=== PATIENT | male | born 1940 | race American Indian/Alaskan Native ===

== ENCOUNTER 2019-02-15 11:51 | Inpatient (IN) | payer MEDICARE ==
[2019-02-15] MEDS ORDERED: NACL 0.9% 1000 ML 1,000 ML IV ONE (12:07)
--- NOTE | 2019-02-15 12:19 | Emergency Department Report ---
ED GI Bleed HPI - General Chief complaint: GI Bleed Stated complaint: RECTUAL BLEEDING Time Seen by Provider: 02/15/19 12:03 Source: family Mode of arrival: Ambulatory Limitations: No Limitations - History of Present Illness Initial comments: 78-year-old male with a past medical history of prostate cancer treated with radiation she is currently in remission as of August, hypertension, and elevated cholesterol presents to the hospital presents to the Hospital complaining of rectal bleeding since this a.m. Patient states he has had 3-4 episodes of grossly bloody stools. Complains of mild intermittent cramping abdominal pain prior to bowel movement. He denies chest pain, shortness of breath, nausea, vomiting, or fever. He states aspirin 81 mg daily but did not have a dose today. She states that he has had intermittent rectal bleeding with hard stools in the past. This was evaluated via outpatient colonoscopy in December performed by Dr.C Faustin. Patient is unsure of results. He denies any history of bleeding similar to today, history of intestinal cancer, known hemorrhoids, or diverticulosis. - Related Data Home Medications Medication Instructions Recorded Confirmed Last Taken Lisinopril [Zestril TAB] 10 mg PO QDAY 02/15/19 02/15/19 02/15/19 Tamsulosin [Flomax] 0.4 mg PO QDAY 02/15/19 02/15/19 Unknown Allergies Allergy/AdvReac Type Severity Reaction Status Date / Time No Known Allergies Allergy Unverified 02/15/19 11:58 ED Review of Systems ROS: Stated complaint: RECTUAL BLEEDING Other details as noted in HPI Comment: All other systems reviewed and negative ED Past Medical Hx - Past Medical History Previous Medical History?: Yes Hx Hypertension: Yes Hx of Cancer: Yes Additional medical history: Prostate cancer - Surgical History Past Surgical History?: Yes Additional Surgical History: Prostate surgery - Social History Smoking Status: Former Smoker Substance Use Type: None - Medications Home Medications: Home Medications Medication Instructions Recorded Confirmed Last Taken Type Lisinopril [Zestril TAB] 10 mg PO QDAY 02/15/19 02/15/19 02/15/19 History Tamsulosin [Flomax] 0.4 mg PO QDAY 02/15/19 02/15/19 Unknown History ED Physical Exam - General Limitations: No Limitations - Other Other exam information: General: No limitations, patient is alert in no acute distress Head exam: Atraumatic, normocephalic Eyes exam: Normal appearance ENT: Moist mucous membrane, normal oropharynx Neck exam: Normal inspection, full range of motion, no meningismus nontender Respiratory exam: Clear to auscultation bilateral, no wheezes, rales, crackles Cardiovascular: Normal rhythm, mild tachycardia Abdomen: Soft, nondistended, and nontender, with normal bowel sounds, no rebound, or guarding Rectal: No external hemorrhoids noted, patient has obvious blood soaked towel in his rectal area. No active blood coming from the rectum Extremity: Full range of motion normal inspection no deformity Back: Normal Inspection, full range of motion, no tenderness Neurologic: Alert, oriented x3, cranial nerves intact, no motor or sensory deficit Psychiatric: normal affect, normal mood Skin: Warm, dry, intact ED Course Vital Signs 02/15/19 02/15/19 02/15/19 11:57 12:06 12:30 Temperature 98.4 F Pulse Rate 127 H 94 H Respiratory 22 15 Rate Blood Pressure 124/61 105/56 O2 Sat by Pulse 99 99 100 Oximetry 02/15/19 02/15/19 02/15/19 13:00 13:30 14:01 Temperature Pulse Rate 86 77 71 Respiratory 14 17 14 Rate Blood Pressure 108/55 120/58 103/43 O2 Sat by Pulse 100 100 100 Oximetry 02/15/19 14:30 Temperature Pulse Rate 72 Respiratory 14 Rate Blood Pressure 106/46 O2 Sat by Pulse 100 Oximetry - Consultations Consultation #1: 02/15/19 12:40 Dr Wiseman on GI call, case d/w Melissa, will try to look up recent colonoscopy ED Medical Decision Making - Lab Data Result diagrams: 02/15/19 12:03 02/15/19 12:03 - Radiology Data Radiology results: report reviewed CTA ABDOMEN PELVIS History: Rectal bleeding Technique: Helical CTA following IV contrast. Sagittal and coronal reformatted images. Rotational MIP images. Findings: The visualized descending thoracic aorta, abdominal aorta, celiac axis, SMA, SIERRA and bilateral single renal arteries are widely patent with less than 20% stenosis. There is moderate noncalcified plaque in the right common iliac artery with stenosis measuring 75%. There is less than 20% stenosis in the left common iliac artery. The bilateral internal and external iliac arteries are widely patent with less than 20% stenosis. No arterial spurt is identified in the rectum or GI system to suggest active bleeding. No large GI mass is appreciated. The prostate gland contains multiple radiotherapy beads. The liver, biliary system, pancreas, spleen, right kidney and adrenal glands are unremarkable. A large cyst in the left kidney measures 6.7 cm. No evidence for mass, adenopathy, free air or ascites. Moderate degenerative changes are noted in the lumbar spine. The lung bases are clear. Impression: No active bleeding is identified at the time of the scan. 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 - Medical Decision Making plan to admit to hospital for workup for gi bleed cta abd/pelvis without acute findings h/h normal hr improved with ivf gi consulted hospitalist informed for admission - Differential Diagnosis diverticulosis, cancer, anemia Critical Care Time: No Critical care attestation.: If time is entered above; I have spent that time in minutes in the direct care of this critically ill patient, excluding procedure time. ED Disposition Clinical Impression: Rectal bleeding Disposition: OP ADMIT IP TO THIS HOSP Is pt being admited?: Yes Condition: Stable Time of Disposition: 13:42 (Dr Ellington/hosp)
[2019-02-15 12:41] LABS: Basophils % (Auto) 0.5 % (0.0-1.8); Eosinophils % (Auto) 0.1 % (0.0-4.3); Hematocrit 38.9 % (35.5-45.6); Hemoglobin 13.1 gm/dl (11.8-15.2); Lymphocytes # (Auto) 1.3 K/mm3 (1.2-5.4); Lymphocytes % (Auto) 19.4 % (13.4-35.0); Mean Corpuscular HGB Conc 34 % (32-34); Mean Corpuscular Volume 94 fl (84-94); Monocytes # (Auto) 0.7 K/mm3 (0.0-0.8); Monocytes % (Auto) 9.5 % (0.0-7.3); Platelet Count 257 K/mm3 (140-440); Red Blood Count 4.14 M/mm3 (3.65-5.03); Red Cell Distribution Width 13.1 % (13.2-15.2)
[2019-02-15 13:03] LABS: INR 1.03 (0.87-1.13)
[2019-02-15 13:04] LABS: Partial Thromboplastin Time 29.2 Sec. (24.2-36.6)
[2019-02-15 13:06] LABS: Alanine Aminotransferase 11 units/L (7-56); Albumin 4.3 g/dL (3.9-5); BUN/Creatinine Ratio 17; Blood Urea Nitrogen 19 mg/dL (9-20); Calcium 9.6 mg/dL (8.4-10.2); Hemolysis Index 8
--- NOTE | 2019-02-15 13:56 | History and Physical Report ---
History of Present Illness Chief complaint: I'm bleeding History of present illness: 78 YO Male with Prostate Cancer S/P Seed Implantation, HTN presents to ED for evaluation. Pt states that he has experienced 3-4 episodes of BRBPR this morning after awakening from sleep. Pt also reports abdominal cramping and feeling weak. Pt transported to [facility] via private vehicle. Pt seen and evaluated in ED and found to be sitting on a towel that was soiled with blood. Pt denies fever, chills, chest pain, shortness of breath, nausea, vomiting, loose stools, productive cough, skin rash, trauma, or recent ill contacts. Pt found to have GI bleed in ED. Gi team consulted. Pt initiated on PPI therapy. Pt admitted to [facility]. No prior admission for review. All listed medication reconciled at time of admission. Past History Past Medical History: cancer, hypertension Past Surgical History: Other (Prostate) Social history: , lives with family. denies: smoking, alcohol abuse, prescription drug abuse Family history: hypertension Medications and Allergies Allergies Allergy/AdvReac Type Severity Reaction Status Date / Time No Known Allergies Allergy Unverified 02/15/19 11:58 Home Medications Medication Instructions Recorded Confirmed Last Taken Type Lisinopril [Zestril TAB] 10 mg PO QDAY 02/15/19 02/15/19 02/15/19 History Tamsulosin [Flomax] 0.4 mg PO QDAY 02/15/19 02/15/19 Unknown History Review of Systems Constitutional: weakness, no weight loss, no weight gain, no fever, no chills Ears, nose, mouth and throat: no ear pain, no ear discharge, no tinnitis, no decreased hearing, no nose pain, no nasal congestion Cardiovascular: no chest pain, no orthopnea, no palpitations, no rapid/irregular heart beat, no edema Respiratory: no cough, no cough with sputum, no excessive sputum, no hemoptysis Gastrointestinal: BRBPR, no abdominal pain, no nausea, no vomiting, no diarrhea, no hematemesis Genitourinary Male: no hematuria, no flank pain, no discharge, no urinary frequency, no urinary hesitancy Rectal: no pain, no incontinence, no bleeding Musculoskeletal: no neck stiffness, no neck pain, no shooting arm pain, no arm numbness/tingling, no low back pain Integumentary: no rash, no pruritis, no redness, no sores, no wounds Neurological: no head injury, no transient paralysis, no paralysis, no weakness, no parathesias, no numbness, no tingling Psychiatric: no anxiety, no memory loss, no change in sleep habits, no sleep disturbances, no insomnia, no hypersomnia, no change in appetite, no change in libido Endocrine: no cold intolerance, no heat intolerance, no polyphagia, no excessive thirst, no polydipsia, no polyuria Hematologic/Lymphatic: no easy bruising, no easy bleeding, no lymphadenopathy, no lymphedema Allergic/Immunologic: no urticaria, no allergic rhinitis, no wheezing, no persistent infections, no angioedema Exam - Constitutional Vitals: Temp Pulse Resp BP Pulse Ox 98.4 F 86 14 108/55 100 02/15/19 11:57 02/15/19 13:00 02/15/19 13:00 02/15/19 13:00 02/15/19 13:00 General appearance: Present: mild distress - EENT Eyes: Present: PERRL ENT: hearing intact, clear oral mucosa - Neck Neck: Present: supple, normal ROM - Respiratory Respiratory effort: normal Respiratory: bilateral: CTA - Cardiovascular Heart Sounds: Present: S1 & S2. Absent: rub, click - Extremities Extremities: pulses symmetrical, No edema Peripheral Pulses: within normal limits - Abdominal General gastrointestinal: Present: soft, non-tender, non-distended, normal bowel sounds Male genitourinary: Present: normal - Integumentary Integumentary: Present: clear, warm, dry - Musculoskeletal Musculoskeletal: gait normal, strength equal bilaterally - Psychiatric Psychiatric: appropriate mood/affect, intact judgment & insight - Neurologic Neurologic: CNII-XII intact, moves all extremities Results - Labs CBC & Chem 7: 02/15/19 12:03 02/15/19 12:03 Labs: Abnormal lab results 02/15/19 02/15/19 Range/Units 12:03 12:03 RDW 13.1 L (13.2-15.2) % [place] % (Auto) 9.5 H (0.0-7.3) % Seg Neutrophils % 70.5 H (40.0-70.0) % Glucose 115 H (75-100) mg/dL Assessment and Plan - Patient Problems (1) Rectal bleeding Current Visit: Yes Status: Acute Plan to address problem: GI Bleeding: Admit to IMCU, serial CBC, IV PPI therapy, No PRBC transfusion at this time. Will transfuse if patient drops hgb greater than 2 grams in 1 shift.GI consulted in ED, CT Abdomen pelvis pending at time of admission. (2) HTN (hypertension) Current Visit: Yes Status: Acute Qualifiers: Hypertension type: essential hypertension Qualified Code(s): I10 - Essential (primary) hypertension Plan to address problem: monitor bp q shift, continue current therapy. (3) Cancer of prostate Current Visit: Yes Status: Acute Plan to address problem: Chronic, POA. Supportive care. F/U with outpatient Urology as scheduled. (4) DVT prophylaxis Current Visit: Yes Status: Acute Plan to address problem: SCD to BLE while in bed, hold anticoagulation secondary to GI bleed.
[2019-02-15] MEDS ORDERED: MORPHINE IV PRN (13:57)
[2019-02-15] MEDS ORDERED: PROVENTIL IH PRN (13:57)
[2019-02-15] MEDS ORDERED: SODIUM CHLORIDE FLUSH SYRINGE 10 ML IV PRN (13:57)
--- NOTE | 2019-02-15 14:05 | Gastroenterology Consultation ---
History of Present Illness - Reason for Consult Consult date: 02/15/19 rectal bleeding Requesting physician: KALPESH SUÁREZ - History of Present Illness Patient is a 78 y/o male (first name Dwight) with PMH of HTN, elevated cholesterol, and prostate cancer (s/p radiation) who presented to ED with c/o rectal bleeding to which GI has been consulted. Patient is previously known to our service and followed by Dr. Faustin. He underwent a recent flex sig on 01/10/19 at [facility] with APC treatment of bleeding rectal AVM. 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 This afternoon, patient was resting on stretcher in ED w/o acute distress and at bedside. He reports an acute onset of rectal bleeding today with a large amount of bright red blood and clots x 2-3 episodes. States he has had intermittent rectal bleeding over the past few years s/p prostate treatment with with a small amount of BRBPR following BMs, however his current bleeding is different from anything he has experienced previously. Admits to some mild lower abdominal cramping with BMs but denies fever, CP, SOB, dizziness, wt loss, N/V, hematemesis, melena, diarrhea, or constipation (takes stool softeners at home). On daily ASA but no hx of PUD or liver disease. Past History Past Medical History: other (as per HPI) Past Surgical History: Other (prostate rxt) Social history: . denies: smoking (former smoker), alcohol abuse Medications and Allergies Allergies Allergy/AdvReac Type Severity Reaction Status Date / Time No Known Allergies Allergy Unverified 02/15/19 11:58 Home Medications Medication Instructions Recorded Confirmed Last Taken Type Lisinopril [Zestril TAB] 10 mg PO QDAY 02/15/19 02/15/19 02/15/19 History Tamsulosin [Flomax] 0.4 mg PO QDAY 02/15/19 02/15/19 Unknown History Active Meds: Active Medications Albuterol (Proventil) 2.5 mg IH Q3HRT PRN PRN Reason: Shortness Of Breath Lisinopril (Zestril) 10 mg PO QDAY JERALD Morphine Sulfate (Morphine) 2 mg IV Q4H PRN PRN Reason: Pain, Moderate (4-6) Pantoprazole Sodium (Protonix) 40 mg IV BID JERALD Sodium Chloride (Sodium Chloride Flush Syringe 10 Ml) 10 ml IV BID JERALD Sodium Chloride (Sodium Chloride Flush Syringe 10 Ml) 10 ml IV PRN PRN PRN Reason: LINE FLUSH Tamsulosin HCl (Flomax) 0.4 mg PO QDAY JERALD medications reviewed/updated as required Review of Systems - Review of Systems All systems: negative Gastrointestinal: hematochezia Exam - Constitutional Vital Signs: Temp Pulse Resp BP Pulse Ox 98.4 F 86 14 108/55 100 02/15/19 11:57 02/15/19 13:00 02/15/19 13:00 02/15/19 13:00 02/15/19 13:00 General appearance: no acute distress - EENT Eyes: PERRL, EOM intact ENT: hearing intact - Respiratory Respiratory effort: normal Respiratory: bilateral: CTA - Cardiovascular Rhythm: regular - Gastrointestinal General gastrointestinal: Present: soft, non-tender, non-distended, normal bowel sounds - Neurologic Neurological: alert and oriented x3 - Labs CBC & Chem 7: 02/15/19 12:03 02/15/19 12:03 Lab Results: Laboratory Results - last 24 hr 02/15/19 02/15/19 02/15/19 12:03 12:03 12:09 WBC 6.9 RBC 4.14 Hgb 13.1 Hct 38.9 MCV 94 MCH 32 MCHC 34 RDW 13.1 L Plt Count 257 Lymph % (Auto) 19.4 [place] % (Auto) 9.5 H Eos % (Auto) 0.1 Baso % (Auto) 0.5 Lymph # 1.3 [place] # 0.7 Eos # 0.0 Baso # 0.0 Seg Neutrophils % 70.5 H Seg Neutrophils # 4.9 PT INR APTT Sodium 139 Potassium 3.8 Chloride 99.3 Carbon Dioxide 24 Anion Gap 20 BUN 19 Creatinine 1.1 Estimated GFR > 60 BUN/Creatinine Ratio 17 Glucose 115 H Calcium 9.6 Total Bilirubin 0.40 AST 20 ALT 11 Alkaline Phosphatase 73 Total Protein 7.0 Albumin 4.3 Albumin/Globulin Ratio 1.6 Blood Type O POSITIVE Antibody Screen Negative 02/15/19 12:09 WBC RBC Hgb Hct MCV MCH MCHC RDW Plt Count Lymph % (Auto) [place] % (Auto) Eos % (Auto) Baso % (Auto) Lymph # [place] # Eos # Baso # Seg Neutrophils % Seg Neutrophils # PT 13.2 INR 1.03 APTT 29.2 Sodium Potassium Chloride Carbon Dioxide Anion Gap BUN Creatinine Estimated GFR BUN/Creatinine Ratio Glucose Calcium Total Bilirubin AST ALT Alkaline Phosphatase Total Protein Albumin Albumin/Globulin Ratio Blood Type Antibody Screen Assessment and Plan 1.rectal bleeding 2.H/o prostate CA (s/p radiation) -afebrile -WBC WNL -INR WNL -BUN, LFTs WNL -H/H WNL (13.1/38.9) -continue to monitor H/H and transfuse as needed -hold blood thinning medications -currently HD stable -last colonoscopy 03/16/2017- once 6 to 8mm polyp at hepatic flexure (removed with hot snare), diverticulosis in sigmoid colon, internal hemorrhoids, and non- 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
--- NOTE | 2019-02-15 15:26 | Cat Scan Report ---
CTA ABDOMEN PELVIS History: Rectal bleeding Technique: Helical CTA following IV contrast. Sagittal and coronal reformatted images. Rotational MIP images. Findings: The visualized descending thoracic aorta, abdominal aorta, celiac axis, SMA, SIERRA and bilateral single renal arteries are widely patent with less than 20% stenosis. There is moderate noncalcified plaque in the right common iliac artery with stenosis measuring 75%. There is less than 20% stenosis in the left common iliac artery. The bilateral internal and external iliac arteries are widely patent with less than 20% stenosis. No arterial spurt is identified in the rectum or GI system to suggest active bleeding. No large GI mass is appreciated. The prostate gland contains multiple radiotherapy beads. The liver, biliary system, pancreas, spleen, right kidney and adrenal glands are unremarkable. A large cyst in the left kidney measures 6.7 cm. No evidence for mass, adenopathy, free air or ascites. Moderate degenerative changes are noted in the lumbar spine. The lung bases are clear. Impression: No active bleeding is identified at the time of the scan. 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
[2019-02-15] MEDS ORDERED: PROTONIX IV SCH (22:00)
[2019-02-15] MEDS: SODIUM CHLORIDE FLUSH SYRINGE 10 ML IV SCH (22:00)
[2019-02-16] MEDS ORDERED: NACL 0.9% 500 ML 500 ML IV ONE ×2 (04:01→13:00)
[2019-02-16] MEDS: NACL 0.9% 1000 ML 1,000 ML IV SCH ×2 (04:25→18:42)
[2019-02-16] MEDS ORDERED: NACL 0.9% 500 ML IV ONE (04:43)
[2019-02-16] MEDS ORDERED: NACL 0.9% 250ML 250 ML IV ONE (05:00)
[2019-02-16] MEDS ORDERED: NACL 0.9% IV SCH (05:00)
[2019-02-16 05:26] LABS: Basophils % (Auto) 0.5 % (0.0-1.8); Eosinophils % (Auto) 0.3 % (0.0-4.3); Hematocrit 36.2 % (35.5-45.6); Hemoglobin 12.4 gm/dl (11.8-15.2); Lymphocytes % (Auto) 30.9 % (13.4-35.0); Mean Corpuscular HGB Conc 34 % (32-34); Mean Corpuscular Volume 94 fl (84-94); Monocytes # (Auto) 0.8 K/mm3 (0.0-0.8); Monocytes % (Auto) 12.5 % (0.0-7.3); Platelet Count 234 K/mm3 (140-440); Red Blood Count 3.85 M/mm3 (3.65-5.03); Red Cell Distribution Width 12.9 % (13.2-15.2)
[2019-02-16 05:31] LABS: Alanine Aminotransferase 12 units/L (7-56); Albumin 3.9 g/dL (3.9-5); BUN/Creatinine Ratio 14; Blood Urea Nitrogen 14 mg/dL (9-20); Calcium 9.6 mg/dL (8.4-10.2); Hemolysis Index 69
[2019-02-16] MEDS: ZESTRIL PO SCH (10:29)
[2019-02-16] MEDS: FLOMAX PO SCH (10:32)
[2019-02-16] MEDS: PROTONIX PO SCH (10:32)
[2019-02-16] MEDS: SODIUM CHLORIDE FLUSH SYRINGE 10 ML IV SCH ×2 (10:33→22:40)
--- NOTE | 2019-02-16 10:53 | Gastroenterology Progress Note ---
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 Tolerating full liquids. -no plan for repeat scope at this time -okay to advance diet -continue supportive care -if bleeding reoccurs, recommend stat bleeding scan vs repeat colonoscopy -if no further bleeding, patient is okay to be d/c per GI standpoint with f/u in clinic -will sign off. please call if needed Subjective Date of service: 02/16/19 Principal diagnosis: rectal bleeding Interval history: Patient resting in bed this am w/o acute distress and at bedside. Report no active signs of bleeding overnight or this am. Denies abd pain or N/V. Tolerating full liquids. Objective - Constitutional Vitals: Temp Pulse Resp BP Pulse Ox 97.5 F L 73 9 L 100/47 100 02/16/19 08:00 02/16/19 10:29 02/16/19 10:11 02/16/19 10:29 02/16/19 10:11 General appearance: no acute distress - EENT Eyes: PERRL, EOM intact ENT: hearing intact - Respiratory Respiratory effort: normal - Cardiovascular Rhythm: regular - Gastrointestinal General gastrointestinal: Present: soft, non-tender, non-distended, normal bowel sounds - Neurologic Neurological: alert and oriented x3 - Labs CBC & Chem 7: 02/16/19 04:02 02/16/19 04:02 Labs: Laboratory Results - last 24 hr 02/15/19 02/15/19 02/15/19 12:03 12:03 12:09 WBC 6.9 RBC 4.14 Hgb 13.1 Hct 38.9 MCV 94 MCH 32 MCHC 34 RDW 13.1 L Plt Count 257 Lymph % (Auto) 19.4 [place] % (Auto) 9.5 H Eos % (Auto) 0.1 Baso % (Auto) 0.5 Lymph # 1.3 [place] # 0.7 Eos # 0.0 Baso # 0.0 Seg Neutrophils % 70.5 H Seg Neutrophils # 4.9 PT INR APTT Sodium 139 Potassium 3.8 Chloride 99.3 Carbon Dioxide 24 Anion Gap 20 BUN 19 Creatinine 1.1 Estimated GFR > 60 BUN/Creatinine Ratio 17 Glucose 115 H Calcium 9.6 Total Bilirubin 0.40 AST 20 ALT 11 Alkaline Phosphatase 73 Total Protein 7.0 Albumin 4.3 Albumin/Globulin Ratio 1.6 Blood Type O POSITIVE Antibody Screen Negative 02/15/19 02/16/19 02/16/19 12:09 04:02 04:02 WBC 6.4 RBC 3.85 Hgb 12.4 Hct 36.2 MCV 94 MCH 32 MCHC 34 RDW 12.9 L Plt Count 234 Lymph % (Auto) 30.9 [place] % (Auto) 12.5 H Eos % (Auto) 0.3 Baso % (Auto) 0.5 Lymph # 2.0 [place] # 0.8 Eos # 0.0 Baso # 0.0 Seg Neutrophils % 55.8 Seg Neutrophils # 3.6 PT 13.2 INR 1.03 APTT 29.2 Sodium 140 Potassium 4.6 D Chloride 102.6 Carbon Dioxide 25 Anion Gap 17 BUN 14 Creatinine 1.0 Estimated GFR > 60 BUN/Creatinine Ratio 14 Glucose 91 Calcium 9.6 Total Bilirubin 0.60 AST 21 ALT 12 Alkaline Phosphatase 66 Total Protein 6.6 Albumin 3.9 Albumin/Globulin Ratio 1.4 Blood Type Antibody Screen
--- NOTE | 2019-02-16 11:11 | Progress Note ---
Assessment and Plan Assessment and plan: -- Rectal bleeding GI Bleeding: Admit to IMCU, serial CBC, IV PPI therapy, No PRBC transfusion at this time. Will transfuse if patient drops hgb greater than 2 grams in 1 shift.GI consulted in ED, CT Abdomen pelvis pending at time of admission. -- HTN (hypertension) monitor bp q shift, continue current therapy. --Cancer of prostate Chronic, POA. Supportive care. F/U with outpatient Urology as scheduled. 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 Closely and adjust management as needed Possible discharge in 1-2 bases stable Stable to be transferred out of the ICU to medical floor Critical care time 32 minutes History Interval history: Patient seen and examined in ICU this morning medical records reviewed Admitted with rectal bleeding evaluated by GI Patient continues to have intermittent bleeding Denies any hematemesis Vital signs noted Hospitalist Physical - Constitutional Vitals: Temp Pulse Resp BP Pulse Ox 97.5 F L 73 9 L 100/47 100 02/16/19 08:00 02/16/19 10:29 02/16/19 10:11 02/16/19 10:29 02/16/19 10:11 General appearance: Present: mild distress, cachectic, disheveled - EENT Eyes: Present: PERRL, EOM intact - Neck Neck: Present: supple, normal ROM - Respiratory Respiratory effort: normal Respiratory: bilateral: diminished, negative: rales, rhonchi, wheezing - Cardiovascular Rhythm: regular Heart Sounds: Present: S1 & S2 - Extremities Extremities: no ischemia, No edema - Abdominal General gastrointestinal: soft, non-tender, non-distended, normal bowel sounds - Integumentary Integumentary: Present: clear, warm - Psychiatric Psychiatric: appropriate mood/affect, cooperative - Neurologic Neurologic: CNII-XII intact, moves all extremities Results - Labs CBC & Chem 7: 02/16/19 04:02 02/16/19 04:02 Labs: Laboratory Last Values WBC 6.4 K/mm3 (4.5-11.0) 02/16/19 04:02 RBC 3.85 M/mm3 (3.65-5.03) 02/16/19 04:02 Hgb 12.4 gm/dl (11.8-15.2) 02/16/19 04:02 Hct 36.2 % (35.5-45.6) 02/16/19 04:02 MCV 94 fl (84-94) 02/16/19 04:02 MCH 32 pg (28-32) 02/16/19 04:02 MCHC 34 % (32-34) 02/16/19 04:02 RDW 12.9 % (13.2-15.2) L 02/16/19 04:02 Plt Count 234 K/mm3 (140-440) 02/16/19 04:02 Lymph % (Auto) 30.9 % (13.4-35.0) 02/16/19 04:02 [place] % (Auto) 12.5 % (0.0-7.3) H 02/16/19 04:02 Eos % (Auto) 0.3 % (0.0-4.3) 02/16/19 04:02 Baso % (Auto) 0.5 % (0.0-1.8) 02/16/19 04:02 Lymph # 2.0 K/mm3 (1.2-5.4) 02/16/19 04:02 [place] # 0.8 K/mm3 (0.0-0.8) 02/16/19 04:02 Eos # 0.0 K/mm3 (0.0-0.4) 02/16/19 04:02 Baso # 0.0 K/mm3 (0.0-0.1) 02/16/19 04:02 Seg Neutrophils % 55.8 % (40.0-70.0) 02/16/19 04:02 Seg Neutrophils # 3.6 K/mm3 (1.8-7.7) 02/16/19 04:02 PT 13.2 Sec. (12.2-14.9) 02/15/19 12:09 INR 1.03 (0.87-1.13) 02/15/19 12:09 APTT 29.2 Sec. (24.2-36.6) 02/15/19 12:09 Sodium 140 mmol/L (137-145) 02/16/19 04:02 Potassium 4.6 mmol/L (3.6-5.0) D 02/16/19 04:02 Chloride 102.6 mmol/L (98-107) 02/16/19 04:02 Carbon Dioxide 25 mmol/L (22-30) 02/16/19 04:02 17 mmol/L 02/16/19 04:02 BUN 14 mg/dL (9-20) 02/16/19 04:02 1.0 mg/dL (0.8-1.5) 02/16/19 04:02 Estimated GFR > 60 ml/min 02/16/19 04:02 14 % 02/16/19 04:02 Glucose 91 mg/dL (75-100) 02/16/19 04:02 Calcium 9.6 mg/dL (8.4-10.2) 02/16/19 04:02 0.60 mg/dL (0.1-1.2) 02/16/19 04:02 AST 21 units/L (5-40) 02/16/19 04:02 ALT 12 units/L (7-56) 02/16/19 04:02 66 units/L (35-129) 02/16/19 04:02 6.6 g/dL (6.3-8.2) 02/16/19 04:02 3.9 g/dL (3.9-5) 02/16/19 04:02 1.4 % 02/16/19 04:02 Blood Type O POSITIVE 02/15/19 12:09 Antibody Screen Negative 02/15/19 12:09 Active Medications - Current Medications Current Medications: Generic Name Dose Route Start Last Admin Trade Name Freq PRN Reason Stop Dose Admin Albuterol 2.5 mg 02/15/19 13:57 Proventil IH Q3HRT PRN Shortness Of Breath Sodium Chloride 1,000 mls @ 100 mls/hr 02/16/19 05:00 02/16/19 04:25 Nacl 0.9% 1000 Ml IV 100 mls/hr DIRECT JERALD Administration Lisinopril 10 mg 02/16/19 10:00 02/16/19 10:29 Zestril PO Not Given QDAY JERALD Morphine Sulfate 2 mg 02/15/19 13:57 Morphine IV Q4H PRN Pain, Moderate (4-6) Pantoprazole Sodium 40 mg 02/16/19 10:00 02/16/19 10:32 Protonix PO 40 mg QDAY JERALD Administration Sodium Chloride 10 ml 02/15/19 22:00 02/16/19 10:33 Sodium Chloride Flush Syringe 10 Ml IV 10 ml BID JERALD Administration Sodium Chloride 10 ml 02/15/19 13:57 Sodium Chloride Flush Syringe 10 Ml IV PRN PRN LINE FLUSH Tamsulosin HCl 0.4 mg 02/16/19 10:00 02/16/19 10:32 Flomax PO 0.4 mg QDAY JERALD Administration
--- NOTE | 2019-02-16 11:50 | Discharge Summary ---
Providers - Providers Date of Admission: 02/15/19 13:57 Date of discharge: 02/16/19 Attending physician: DANE ULLOA 02/15/19 12:41 Consult to Physician [CONS] Urgent Comment: Consulting Provider: TETE BAER Physician Instructions: Reason For Exam: rectal bleeding Primary care physician: GUSTAVO WARE Hospitalization Condition: Stable Disposition: DC-30 STILL A PATIENT Exam - Constitutional Vitals: Temp Pulse Resp BP Pulse Ox 97.5 F L 73 9 L 100/47 100 02/16/19 08:00 02/16/19 10:29 02/16/19 10:11 02/16/19 10:29 02/16/19 10:11 Plan Activity: advance as tolerated, fall precautions Diet: regular Additional Instructions: If you notice any rectal bleeding contact M.D.or go to the emergency room Follow up with: GUSTAVO WARE JR, MD [Primary Care Provider] - 7 Days TETE BAER MD [Staff Physician] - 7 Days Prescriptions: Pantoprazole [Protonix TAB] 40 mg PO QDAY #30 tablet
[2019-02-16] MEDS ORDERED: NACL 0.9% 500 ML 500 ML ONE (12:43)
--- NOTE | 2019-02-16 13:34 | Consultation ---
History of Present Illness Consult date: 02/16/19 Requesting physician: DANE ULLOA Reason for consult: other (Acute GI Bleed) History of present illness: PULMONARY/CCM CONSULT NOTE (Full dictation # [id number]) Please see dictated notes for full details Past History Past Medical History: other (as per HPI) Past Surgical History: Other (prostate rxt) Social history: . denies: smoking (former smoker), alcohol abuse Family history: hypertension Medications and Allergies Allergies Allergy/AdvReac Type Severity Reaction Status Date / Time No Known Allergies Allergy Unverified 02/15/19 11:58 Home Medications Medication Instructions Recorded Confirmed Last Taken Type Lisinopril [Zestril TAB] 10 mg PO QDAY 02/15/19 02/15/19 02/15/19 History Tamsulosin [Flomax] 0.4 mg PO QDAY 02/15/19 02/15/19 Unknown History Pantoprazole [Protonix TAB] 40 mg PO QDAY #30 tablet 02/16/19 Unknown Rx Active Meds: Active Medications Albuterol (Proventil) 2.5 mg IH Q3HRT PRN PRN Reason: Shortness Of Breath Sodium Chloride (Nacl 0.9% 1000 Ml) 1,000 mls @ 100 mls/hr IV DIRECT [facility] Last Admin: 02/16/19 04:25 Dose: 100 mls/hr Documented by: Lisinopril (Zestril) 10 mg PO QDAY [facility] Last Admin: 02/16/19 10:29 Dose: Not Given Documented by: Morphine Sulfate (Morphine) 2 mg IV Q4H PRN PRN Reason: Pain, Moderate (4-6) Pantoprazole Sodium (Protonix) 40 mg PO QDAY [facility] Last Admin: 02/16/19 10:32 Dose: 40 mg Documented by: Sodium Chloride (Sodium Chloride Flush Syringe 10 Ml) 10 ml IV BID [facility] Last Admin: 02/16/19 10:33 Dose: 10 ml Documented by: Sodium Chloride (Sodium Chloride Flush Syringe 10 Ml) 10 ml IV PRN PRN PRN Reason: LINE FLUSH Tamsulosin HCl (Flomax) 0.4 mg PO QDAY [facility] Last Admin: 02/16/19 10:32 Dose: 0.4 mg Documented by: Physical Examination Vital signs: Vital Signs Temp Pulse Resp BP Pulse Ox 98.4 F 127 H 22 124/61 99 02/15/19 11:57 02/15/19 11:57 02/15/19 11:57 02/15/19 11:57 02/15/19 11:57 Results - Laboratory Findings CBC and BMP: 02/16/19 04:02 02/16/19 04:02 PT/INR, D-dimer PT 13.2 Sec. (12.2-14.9) 02/15/19 12:09 INR 1.03 (0.87-1.13) 02/15/19 12:09 Abnormal lab findings: Abnormal Labs 02/15/19 02/15/19 02/16/19 12:03 12:03 04:02 RDW 13.1 L 12.9 L [place] % (Auto) 9.5 H 12.5 H Seg Neutrophils % 70.5 H Glucose 115 H
[2019-02-16] MEDS ORDERED: NACL 0.9% 1000 ML 1,000 ML IV SCH (14:39)
--- NOTE | 2019-02-16 15:11 | Consultation ---
History of Present Illness - Reason for Consult Consult date: 02/16/19 PHAN stenosis - History of Present Illness 78 YO Male with Prostate Cancer S/P Seed Implantation, HTN presents to ED for evaluation. Pt states that he has experienced 3-4 episodes of BRBPR this morning after awakening from sleep. Pt also reports abdominal cramping and feeling weak. Pt transported to [facility] via private vehicle. Pt seen and evaluated in ED and found to be sitting on a towel that was soiled with blood. Pt denies fever, chills, chest pain, shortness of breath, nausea, vomiting, loose stools, productive cough, skin rash, trauma, or recent ill contacts. Pt found to have GI bleed in ED. Gi team consulted. Pt initiated on PPI therapy. Pt admitted to [facility]. No prior admission for review. All listed medication reconciled at time of admission. Patient reports that at most he walks half a mile in his neighborhood. He does not walk long enough to claudicate. No rest pain. Left pedal pulses palpable. Right pedal pulses nonpalpable. Both feet are warm and well-perfused. No ev idence of ischemia. Past History Past Medical History: other (as per HPI) Past Surgical History: Other (prostate rxt) Social history: . denies: smoking (former smoker), alcohol abuse Family history: hypertension Medications and Allergies Allergies Allergy/AdvReac Type Severity Reaction Status Date / Time No Known Allergies Allergy Unverified 02/15/19 11:58 Home Medications Medication Instructions Recorded Confirmed Last Taken Type Lisinopril [Zestril TAB] 10 mg PO QDAY 02/15/19 02/15/19 02/15/19 History Tamsulosin [Flomax] 0.4 mg PO QDAY 02/15/19 02/15/19 Unknown History Pantoprazole [Protonix TAB] 40 mg PO QDAY #30 tablet 02/16/19 Unknown Rx Active Meds: Active Medications Albuterol (Proventil) 2.5 mg IH Q3HRT PRN PRN Reason: Shortness Of Breath Sodium Chloride (Nacl 0.9% 1000 Ml) 1,000 mls @ 100 mls/hr IV DIRECT [facility] Last Admin: 02/16/19 04:25 Dose: 100 mls/hr Documented by: Sodium Chloride (Nacl 0.9% 1000 Ml) 1,000 mls @ 100 mls/hr IV DIRECT [facility] Stop: 02/17/19 00:38 Lisinopril (Zestril) 10 mg PO QDAY [facility] Last Admin: 02/16/19 10:29 Dose: Not Given Documented by: Morphine Sulfate (Morphine) 2 mg IV Q4H PRN PRN Reason: Pain, Moderate (4-6) Pantoprazole Sodium (Protonix) 40 mg PO QDAY [facility] Last Admin: 02/16/19 10:32 Dose: 40 mg Documented by: Sodium Chloride (Sodium Chloride Flush Syringe 10 Ml) 10 ml IV BID [facility] Last Admin: 02/16/19 10:33 Dose: 10 ml Documented by: Sodium Chloride (Sodium Chloride Flush Syringe 10 Ml) 10 ml IV PRN PRN PRN Reason: LINE FLUSH Tamsulosin HCl (Flomax) 0.4 mg PO QDAY [facility] Last Admin: 02/16/19 10:32 Dose: 0.4 mg Documented by: Review of Systems All systems: negative (see HPI) Exam - Constitutional Vitals: Temp Pulse Resp BP Pulse Ox 97.5 F L 73 9 L 100/47 100 02/16/19 08:00 02/16/19 10:29 02/16/19 10:11 02/16/19 10:29 02/16/19 10:11 General appearance: Present: no acute distress - EENT Eyes: Present: EOM intact ENT: hearing intact - Respiratory Respiratory effort: normal - Extremities Extremities: pulses intact (left pedal pulses), normal temperature, normal color Extremity abnormal: pulses diminished (right pedal pulses nonpalpable) - Abdominal General gastrointestinal: Present: soft - Psychiatric Psychiatric: appropriate mood/affect, cooperative Results - Labs CBC & Chem 7: 02/16/19 04:02 02/16/19 04:02 Labs: Abnormal lab results 02/16/19 Range/Units 04:02 RDW 12.9 L (13.2-15.2) % [place] % (Auto) 12.5 H (0.0-7.3) % - Imaging and Cardiology CT scan - abdomen: report reviewed, image reviewed Assessment and Plan 78-year-old male with admission for GI bleeding with incidental note of right iliac artery stenosis. Patient does not have claudication due to limited walking distance due to lifestyle. No rest pain. Left pedal pulses palpable. Right pedal pulses nonpalpable, consistent with common iliac stenosis. Discussed with patient that there is no need to treat him at the current time, especially with GI bleeding. Follow-up as outpatient. Card provided.
--- NOTE | 2019-02-16 23:19 | Consultation ---
CONSULTING PHYSICIAN: Dr. Charisse MD REASON FOR CONSULTATION: Acute GI bleed. CHIEF COMPLAINT AND HISTORY OF PRESENT ILLNESS: The patient is a 78-year-old -[place] male with past medical history significant for a diagnosis of prostate cancer that was treated with radiation therapy, tell me me about 4 years ago, currently in remission, also has a history of hypertension, came into the Emergency Room complaining of rectal bleed. On the morning of presentation a couple of days ago, family describes it as a lot. He denied any chest pain. He denied any nausea or vomiting. He denied any hematemesis. He denied any hematuria. He states that he has noticed the bleeding intermittently since he had his radiation therapy for his prostate cancer. He does take a baby aspirin a day. He had a colonoscopy in December and he denied any history of known hemorrhoids, but again no further intervention was planned. He was admitted to the Intensive Care Unit apparently for workup of the acute GI bleed. A CT of the abdomen and pelvis was negative. We are asked to assist with management. He was also seen by the GI team. He has not really had any major bleeding since he has been here. 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 When I stopped by to see him this morning, he was resting in bed. His mean arterial pressures have been running as low as 58-59 mmHg. He denied any chest pains or palpitations. He admitted to being thirsty. He denied any other easy bruising or easy bleeding except from the rectal area. When asked about a history of tobacco use, he has a less than 10-pack remote tobacco smoking history. He quit smoking 30 years ago. This is really as much of the history of presentation as I have. PAST MEDICAL HISTORY: Again, hypertension, prostate cancer and hyperlipidemia. PAST SURGICAL HISTORY: He has radiation therapy to the prostate. No surgery. MEDICATIONS: He was on at the time I stopped by to see him were reviewed. Pertinent medications include the following: Albuterol nebulizer treatments 2.5 mg inhaled q. 3 hours p.r.n. shortness of breath, Zestril 10 mg p.o. daily, morphine 2 mg IV q. 4 hours p.r.n. moderate pain, Protonix 40 mg p.o. daily, tamsulosin 0.4 mg p.o. daily. ALLERGIES: No known drug allergies. DIET: Thin gentleman. He denies acute weight loss or gain in the preceding few weeks to months. FAMILY AND SOCIAL HISTORY: He lives in the community. He is . He denies current alcohol, tobacco, or illicit drug use or abuse. He has a remote less than [id number] tobacco smoking history. REVIEW OF SYSTEMS: No loss of consciousness. No new onset seizures. No new onset focal weakness. Denies any new rashes on his body. Denies any new bleeding or diathesis. Denies any obvious spider nevi or other stigmata of liver disease. Over the abdominal region, denies any abdominal swelling. He denies any heat or cold intolerance. Denies polydipsia. Denies polyuria. Denies periods of unexplained sadness or elation as may be consistent with depression and opal. Complete 13-system review of systems obtained. Pertinent positives and/or negatives as in body of history above, otherwise noncontributory. I should mention he also denies any dizziness. PHYSICAL EXAMINATION: VITAL SIGNS: At presentation in the Emergency Room, afebrile, temperature 98.4 degrees Fahrenheit, pulse was 127, respiratory rate was 22, blood pressure 124/61, O2 sats were 99%, inspired oxygen concentration at that time was not recorded. When I stopped by to see him, his O2 sats were 98% on room air. GENERAL: Elderly looking thin -[place] male. Normocephalic, atraumatic, talking to me in full sentences without significant respiratory distress. HEAD, EYES, EARS, NOSE AND THROAT: He was anicteric. No conjunctival erythema. Oropharynx was moist. Mallampati #2 oropharynx. No gross jugular venous distention, no thyromegaly. Grossly, no palpable lymph nodes in the supraclavicular or submandibular lymph node chains. LUNGS: Auscultation of both lung alford unremarkable. Lungs are clear bilaterally. HEART: Heart sounds 1 and 2 are heard. They were regular in rate and rhythm at the time of my evaluation. He has a systolic murmur that is louder with a Valsalva type maneuver. ABDOMEN: Flat, soft, bowel sounds are positive, nontender. No palpable hepatosplenomegaly. RECTAL: Deferred. EXTREMITIES: Without overt digital clubbing, no cyanosis, no pedal edema. Pedal pulses are palpable and strong 2+ bilaterally. NEUROLOGIC: Pupils are equal, round, about 4 mm, reactive to light. Extraocular muscle movements are intact. He moves all 4 extremities spontaneously. No spasticity, no fasciculations. SKIN: Normal turgor without overt cellulitis or rash. His mood is normal. His affect is appropriate. LABORATORY DATA: From my review are as follows: Admission white cell count 6900, hemoglobin 13.1, hematocrit 38.9, platelet count 257. No band forms. INR 1.03. Serum sodium 139, potassium 3.8, chloride 99, bicarbonate 24, BUN 19, creatinine 1.1, glucose 115. Liver function test within normal limits. That was yesterday. Today, hemoglobin is down slightly to 12.4. No microbiology studies. A CT angio of the abdomen and pelvis was done. No active bleeding was noticed. They did notice 75% stenosis in the right common iliac artery, but again no active bleeding. ASSESSMENT AND PLAN: 1. Acute gastrointestinal bleeding or rectal bleeding. 2. Hypotension. 3. Systemic inflammatory response syndrome at presentation. 4. History of prostate cancer. 5. History of hypertension. 6. History of hyperlipidemia. PLAN: I am bothered by the fact that his mean arterial pressures are in the 50s. He is hypotensive. His BUN and creatinine does not in itself suggest overt intravascular volume depletion. I think it is more prudent to allow this gentleman to be transferred to a regular floor rather than discharged home from the intensive care unit with his relative hypotension. I will give him a bolus of 500 mL of IV NS and then continue normal saline at 100 mL an hour for one and half more liters. We will observe him on the medical floor, follow mean arterial pressures. I have asked him to let us know if he develops any symptomatology, headaches, dizziness, chest pain. We will continue GI prophylaxis. It is unclear what report on the 75% stenosis of the right common iliac artery means. I will request a Vascular Surgery evaluation as to make sure that he does not need to follow up with them or that does not need some acute intervention. Flu and pneumonia vaccination will be addressed per protocol. Thank you very much for the consult Dr. Mcqueen. We will follow along and make further recommendations as picture progresses/becomes clearer. JOB# [id number] PRETTY/NTS
[2019-02-17] MEDS: NACL 0.9% 1000 ML 1,000 ML IV SCH (05:59)
[2019-02-17 06:04] LABS: Basophils % (Auto) 0.3 % (0.0-1.8); Eosinophils % (Auto) 0.6 % (0.0-4.3); Hematocrit 32.4 % (35.5-45.6); Hemoglobin 11.1 gm/dl (11.8-15.2); Lymphocytes # (Auto) 1.4 K/mm3 (1.2-5.4); Lymphocytes % (Auto) 25.3 % (13.4-35.0); Mean Corpuscular HGB Conc 34 % (32-34); Mean Corpuscular Volume 94 fl (84-94); Monocytes # (Auto) 0.6 K/mm3 (0.0-0.8); Platelet Count 197 K/mm3 (140-440); Red Blood Count 3.45 M/mm3 (3.65-5.03)
[2019-02-17 07:19] VITALS: BP 113/45
--- NOTE | 2019-02-17 08:23 | Progress Note ---
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 Hemodynamics are normal, stable hemoglobin. Denies any chest pain, no shortness of breath, no fevers or chills. Tolerating a diet Objective Vital Signs - 12hr 02/16/19 02/17/19 02/17/19 20:25 00:51 03:11 Temperature 99.2 F 98.8 F Pulse Rate 73 65 82 Respiratory 18 18 Rate Blood Pressure 107/52 127/54 O2 Sat by Pulse 100 100 Oximetry 02/17/19 02/17/19 07:17 07:19 Temperature 98.7 F Pulse Rate 65 Respiratory 18 Rate Blood Pressure 113/45 O2 Sat by Pulse 100 Oximetry Constitutional: no acute distress, alert Eyes: non-icteric ENT: oropharynx moist Neck: supple, no lymphadenopathy, no JVD Effort: normal Ascultation: Bilateral: clear Cardiovascular: regular rate and rhythm, other (S1,S2, no murmurs, gallops or rubs) Gastrointestinal: normoactive bowel sounds, soft, non-tender, non-distended Integumentary: normal Extremities: no cyanosis, no edema, pink and warm, pulses normal, no ischemia or petechiae Neurologic: normal mental status, non-focal exam, pupils equal and round, CN II- XII normal, motor strength normal and Psychiatric: mood appropriate, affect normal CBC and BMP: 02/17/19 05:14 02/16/19 04:02 ABG, PT/INR, D-dimer: PT/INR, D-dimer PT 13.2 Sec. (12.2-14.9) 02/15/19 12:09 INR 1.03 (0.87-1.13) 02/15/19 12:09 Abnormal lab findings: Abnormal Labs 02/15/19 02/15/1919 12:03 12:03 04:02 RBC Hgb Hct RDW 13.1 L 12.9 L [place] % (Auto) 9.5 H 12.5 H Seg Neutrophils % 70.5 H Glucose 115 H 02/17/19 05:14 RBC 3.45 L Hgb 11.1 L Hct 32.4 L RDW 13.0 L [place] % (Auto) 12.0 H Seg Neutrophils % Glucose Allied health notes reviewed: nursing
[2019-02-17] MEDS: SODIUM CHLORIDE FLUSH SYRINGE 10 ML IV SCH (09:25)
[2019-02-17] MEDS: FLOMAX PO SCH (09:25)
[2019-02-17] MEDS: ZESTRIL PO SCH (09:25)
[2019-02-17] MEDS: PROTONIX PO SCH (09:25)
--- NOTE | 2019-02-17 10:34 | Discharge Summary ---
Providers - Providers Date of Admission: 02/15/19 13:57 Date of discharge: 02/17/19 Attending physician: DANE ULLOA 02/15/19 12:41 Consult to Physician [CONS] Urgent Comment: Consulting Provider: TETE BAER Physician Instructions: Reason For Exam: rectal bleeding 02/16/19 12:22 Consult to Physician [CONS] Routine Comment: Consulting Provider: DAWOOD SANDERS Physician Instructions: Reason For Exam: Cr Care consult 02/16/19 14:27 Consult to Physician [CONS] Urgent Comment: Consulting Provider: MAKENZIE ECHAVARRIA Physician Instructions: Reason For Exam: Right common iliac 75% stenosis Primary care physician: GUSTAVO WARE Hospitalization Reason for admission: Rectal bleeding Condition: Stable Pertinent studies: CTA abdomen: No evidence of bleeding in the colon.75% stenosis rt common iliac artery Hospital course: 78 YO Male with Prostate Cancer S/P Seed Implantation, HTN presents to ED for evaluation. Pt states that he has experienced 3-4 episodes of BRBPR this morning after awakening from sleep. Pt also reports abdominal cramping and feeling weak. Pt transported to [facility] via private vehicle. Pt seen and evaluated in ED and found to be sitting on a towel that was soiled with blood. Pt denies fever, chills, chest pain, shortness of breath, nausea, vomiting, loose stools, productive cough, skin rash, trauma, or recent ill contacts. Pt found to have GI bleed in ED. Gi team consulted. Pt initiated on PPI therapy. Pt admitted to IMCU. Symptomatically managed,evaluated by GI, Patient did not have new episodes of bleeding, H & H stable,hemodynamically stable.GI has no plans of endoscopy.Cleared for discharge and advised to f/u per schedule upon discharge Discharge Diagnosis: -- Rectal bleeding No new episodes of GI Bleeding: H and H stable,GI evaluated -- HTN (hypertension) well controlled ,continue current medications --Cancer of prostate Chronic, POA. Supportive care. F/U with outpatient Urology as scheduled. 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 f/u outpatient upon discharge -- DVT prophylaxis SCD to BLE while in bed, hold anticoagulation secondary to GI bleed. Stable at discharge Disposition: - TO HOME OR SELFCARE Time spent for discharge: 32 min Core Measure Documentation - Palliative Care Palliative Care/ Comfort Measures: Not Applicable - Core Measures Any of the following diagnoses?: none Exam - Constitutional Vitals: Temp Pulse Resp BP Pulse Ox 98.7 F 65 18 113/45 100 02/17/19 07:19 02/17/19 07:17 02/17/19 07:17 02/17/19 07:17 02/17/19 07:17 General appearance: Present: no acute distress, well-nourished - EENT Eyes: Present: PERRL, EOM intact - Neck Neck: Present: supple, normal ROM - Respiratory Respiratory effort: normal Respiratory: bilateral: diminished, negative: rales, rhonchi, wheezing - Cardiovascular Rhythm: regular Heart Sounds: Present: S1 & S2 - Extremities Extremities: no ischemia, No edema - Abdominal General gastrointestinal: Present: soft, non-tender, non-distended, normal bowel sounds - Integumentary Integumentary: Present: clear, warm - Musculoskeletal Musculoskeletal: strength equal bilaterally - Psychiatric Psychiatric: appropriate mood/affect, cooperative - Neurologic Neurologic: CNII-XII intact, moves all extremities Plan Activity: advance as tolerated Diet: regular, advance as tolerated Additional Instructions: If you notice rectal bleeding ,contact MD or go to ER Follow up with: TETE BAER MD [Staff Physician] - 7 Days GUSTAVO WARE JR, MD [Primary Care Provider] - 7 Days Prescriptions: Pantoprazole [Protonix TAB] 40 mg PO QDAY #30 tablet
== END 2019-02-17 12:40 | disposition home or self-care (01) | DRG 394 ==
LOC: ED 11:51 → IMCU 13:57 → CC1 17:31 → 2B-ACE 02-16 15:31
PROVIDERS: ADMIT Internal Medicine; ATTEND Internal Medicine
DX: K64.8 Other hemorrhoids (principal); R65.10 Systemic inflammatory response syndrome (SIRS) of non-infectious origin without acute organ dysfunction; C61 Malignant neoplasm of prostate; I70.201 Unspecified atherosclerosis of native arteries of extremities, right leg; I95.9 Hypotension, unspecified; K57.30 Diverticulosis of large intestine without perforation or abscess without bleeding; K55.20 Angiodysplasia of colon without hemorrhage; I10 Essential (primary) hypertension; Z82.49 Family history of ischemic heart disease and other diseases of the circulatory system; Z85.46 Personal history of malignant neoplasm of prostate; Z92.3 Personal history of irradiation; Z87.891 Personal history of nicotine dependence
CPT/HCPCS: 36415; 74174; 80053; 85025; 85610; 85730; 86850; 86900; 86901; 93005; 93010; G0378; J7030; J7040; Q9967